=== PATIENT | male | born 1945 | race Caucasian/White ===

== ENCOUNTER → 2019-12-02 10:15 | Outpatient (BNVA) | payer MEDICARE, OTHER, SELFPAY | PROVIDERS: Family Provider Registered Nurse; PCP Registered Nurse; Visit Provider Registered Nurse | DX: F51.01 Primary insomnia (principal); H40.9 Unspecified glaucoma; N52.1 Erectile dysfunction due to diseases classified elsewhere; M62.830 Muscle spasm of back; I25.10 Atherosclerotic heart disease of native coronary artery without angina pectoris; R73.09 Other abnormal glucose | CPT/HCPCS: 80053; 80061; 83036; 85025 ==

== ENCOUNTER 2020-01-14 07:56 | Day surgery (SDC) | payer MEDICARE, OTHER, SELFPAY ==
[2020-01-14 08:10] VITALS: BP 135/76; PULSE 56; RESP 18; TEMP 36.1; O2SAT 97
[2020-01-14 08:11] VITALS: BMI 23.7
[2020-01-14] MEDS: sodium chloride 0.9% 1,000 ML 30 ML IV (08:23)
--- NOTE | 2020-01-14 08:55 | ANES.PREANE2 ---
Pre-Anesthetic Assessment Pre-Anesthetic Assessment: Height/Weight: Height 1.85 m Weight 81.647 kg Temp Pulse Resp BP Pulse Ox 97.0 F L 56 L 18 135/76 97 01/14/20 08:10 01/14/20 08:10 01/14/20 08:10 01/14/20 08:10 01/14/20 08:10 Preop Diagnosis: Screening Proposed Procedure: Operation Date: 01/14/20 09:00 Proposed Procedures p Colonoscopy/Possible biopsy Possible polypectomy/ 68073 Z12.11(Not Applicable) - Charles Krause MD Familial anesthetic complications: none Was Beta Nilsa taken within 24 hours: N/A Last intake: Intake Last Liquid Date 01/13/20 Last Liquid Time 23:00 Last Solid Date 01/12/20 Last Intake: 23:00 Social: Social History: No alcohol and No tobacco Exam: Pre-Anes Outpt Exam: alert, oriented x 3, clear to auscultation bilaterally and regular rate & rhythm Airway: Submandibular: WNL Cervical ROM: WNL MP: 2 Dentition: Full Pulmonary: Pulmonary: None reported CV/HEM: CV/HEM: CAD and SD Comments: PTCA placed 6 yrs. No SS since : : None reported Hepatic: Hepatic: None reported GI: GI: None reported Metabolic: Metabolic: None reported Musc/skel: Musc/skel: None reported Neuropsych: Neuropsych: None reported Anesthetic Plan: ASA status: 3 Anesthesia: Anesthesia Evaluation and MAC Risk of > 500 ml blood loss (7ml/kg in children): No Meds/Allergies Current Medications: Current Medications Generic Name Dose Route Start Last Admin Trade Name Freq PRN Reason Stop Dose Admin Sodium Chloride 1,000 mls @ 30 ml s/hr 01/14/20 08:15 01/14/20 08:23 Sodium Chloride 0.9% IV 30 mls/hr .Q24H SOHAIL Administration PFSH Anesthesia PFSH: Medical History (Updated 01/08/20 @ 16:52 by Marietta Moffett LPN) CAD (coronary artery disease) Erectile 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 Glaucoma Myocardial infarction MAGGIE (obstructive sleep apnea) Surgical History S/P cataract extraction S/P PTCA (percutaneous transluminal coronary angioplasty) Family History Mother Diabetes Denies family history of Anesthesia complication Bleeding disorder Social History Smoking and tobacco status: former smoker Alcohol intake: never Adopted: No Caregiver/support person: No Lives independently: No Household members: spouse Marital status: Current occupational status: retired History of recent travel: No Sexually active: Yes Current gender identity: Male Data Anesthesia Cardiac Studies: No Data to Display
--- NOTE | 2020-01-14 09:17 | W.PM.OPSUD ---
Surgery/Procedure H&P Update DATE OF PROCEDURE: January 14, 2020 DATE H&P PERFORMED: 01/08/20 H&P UPDATE INFORMATION: I have reviewed H&P completed within last 30 days, I have examined patient prior to procedure and No changes to prior documentation PREOP DIAGNOSIS: Screening PLANNED PROCEDURE: Operation Date: 01/14/20 09:00 Proposed Procedures p Colonoscopy/Possible biopsy Possible polypectomy/ 35151 Z12.11(Not Applicable) - Charles Krause MD
[2020-01-14 09:42] VITALS: BP 90/54; PULSE 61; RESP 16; TEMP 36.5; O2SAT 98
--- NOTE | 2020-01-14 09:55 | ANE.PACU2 ---
Inpatient post-anesthesia follow up: Airway intact: Yes Vital signs: Temperature 97.7 F Pulse Rate 61 Respiratory Rate 16 Blood Pressure 90/54 Pulse Oximetry 98 Oxygen Delivery Me thod Nasal Cannula Oxygen Flow Rate 3 Fraction of Inspir ed Oxygen Hydration adequate: Yes Nausea and vomiting: No Pain level: 1
== END 2020-01-14 10:17 | disposition home or self-care (01) ==
PROVIDERS: PCP Registered Nurse; Visit Provider Surgery
PROC: 0DJD8ZZ Inspection of Lower Intestinal Tract, Via Natural or Artificial Opening Endoscopic (ICD-10-PCS; CPT 45378; principal; 2020-01-14 09:00)
DX: Z12.11 Encounter for screening for malignant neoplasm of colon (principal); K57.30 Diverticulosis of large intestine without perforation or abscess without bleeding; I25.10 Atherosclerotic heart disease of native coronary artery without angina pectoris; I25.2 Old myocardial infarction; G47.33 Obstructive sleep apnea (adult) (pediatric); Z87.891 Personal history of nicotine dependence; Z79.82 Long term (current) use of aspirin
CPT/HCPCS: 12345; G0121; J2704; J7030

== ENCOUNTER 2020-02-10 11:29 | Day surgery (SDC) | payer MEDICARE, OTHER, SELFPAY ==
[2020-02-10] VITALS (9 sets, daily range): BP systolic 115–125; BP diastolic 67–76; PULSE 54–75; RESP 14–18; TEMP 36.3–36.6; O2SAT 95–100; BMI 23.1
--- NOTE | 2020-02-10 09:21 | P.HP_ITS ---
Same Day Surgery H&P Indication for Procedure/HPI DATE OF PROCEDURE: February 10, 2020 CHIEF COMPLAINT/INDICATIONFOR SURGICAL PROCEDURE: Bilateral inguinal hernia PREOP DIAGNOSIS: Screening PLANNED PROCEDRUE: Operation Date: 02/10/20 12:45 Proposed Procedures p Laparoscopic poss Open Inguinal Hernia Repair w/Mesh 42412 K40.20(Bilateral) - Charles Krause MD Medications/Allergies* Home Medications Medication Instructions Recorded Confirmed Type aspirin 81 mg tablet,delayed 81 mg PO DAILY 12/01/19 02/09/20 History release dorzolamide 2 % eye drops 1 drop OPHTHALMIC (EYE) BID 01/08/20 02/09/20 History Allergies/Adverse Reactions Allergy/AdvReac Type Severity Reaction Status Date / Time No Known Allergies Allergy Verified 01/08/20 11:33 Pertinent History/Comorbid Conditions* Medical History (Updated 01/08/20 @ 13:08 by Charles Krause MD) CAD (coronary artery disease) Erectile 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 Glaucoma Myocardial infarction MAGGIE (obstructive sleep apnea) Surgical History (Updated 01/08/20 @ 11:49 by Charles Krause MD) S/P cataract extraction S/P PTCA (percutaneous transluminal coronary angioplasty) Family History (Updated 01/08/20 @ 11:[address]) Diabetes Mother Denies family history of Anesthesia complication Bleeding disorder Social History Smoking and tobacco status: former smoker Alcohol intake: never Adopted: No Caregiver/support person: No Lives independently: No Household members: spouse Marital status: Current occupational status: retired History of recent travel: No Sexually active: Yes Current gender identity: Male Pertinent Exam Findings alert and regular rate & rhythm Recommendations Surgery/Procedure today Coding Level of Care Code Acute 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
[2020-02-10] MEDS: sodium chloride 0.9% 1,000 ML 30 ML IV (11:56)
--- NOTE | 2020-02-10 13:48 | ANES.PREANE2 ---
Pre-Anesthetic Assessment Pre-Anesthetic Assessment: Height/Weight: Height 1.85 m Weight 79.379 kg Temp Pulse Resp BP Pulse Ox 97.4 F L 64 18 125/76 98 02/10/20 11:40 02/10/20 11:40 02/10/20 11:40 02/10/20 11:40 02/10/20 11:40 Preop Diagnosis: bilateral inguinal hernia Proposed Procedure: Operation Date: 02/10/20 12:45 Proposed Procedures p Laparoscopic poss Open Inguinal Hernia Repair w/Mesh 80931 K40.20(Bilateral) - Charles Krause MD Familial anesthetic complications: None Was Beta Nilsa taken within 24 hours: N/A Last intake: Intake Last Liquid Date 02/09/20 Last Liquid Time 23:30 Last Solid Date 02/09/20 Last Solid Time 20:00 Social: Social History: No alcohol and No tobacco Exam: Pre-Anes Outpt Exam: alert, oriented x 3, clear to auscultation bilaterally and regular rate & rhythm Airway: Cervical ROM: WNL MP: 2 Dentition: Full Pulmonary: Pulmonary: None reported CV/HEM: CV/HEM: CAD (stents 5 years ago - only on aspirin now) and [place] Comments: METS > 4 works out 3x a week, can walk up stairs Anesthetic Plan: ASA status: 2 Anesthesia: General Risk of > 500 ml blood loss (7ml/kg in children): No Meds/Allergies Current Medications: Current Medications Generic Name Dose Route Start Last Admin Trade Name Freq PRN Reason Stop Dose Admin Sodium Chloride 1,000 mls @ 30 ml s/hr 02/10/20 10:15 02/10/20 11:56 Sodium Chloride 0.9% IV 02/11/20 10:14 30 mls/hr .Q24H SOHAIL Administration PFSH Anesthesia PFSH: Medical History (Updated 01/08/20 @ 16:52 by Marietta Moffett LPN) CAD (coronary artery disease) Erectile 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 Glaucoma Myocardial infarction MAGGIE (obstructive sleep apnea) Surgical History S/P cataract extraction S/P PTCA (percutaneous transluminal coronary angioplasty) Family History Mother Diabetes Denies family history of Anesthesia complication Bleeding disorder Social History Smoking and tobacco status: former smoker Alcohol intake: never Adopted: No Caregiver/support person: No Lives independently: No Household members: spouse Marital status: Current occupational status: retired History of recent travel: No Sexually active: Yes Current gender identity: Male Data Anesthesia Cardiac Studies: No Data to Display
--- NOTE | 2020-02-10 13:54 | ECG_ITS ---
[facility] Test Date: 2020-02-10 Pat Name: Celestine Natarajan Department: Room: Gender: Male Capacitor Tester: : 1945 Requested By: Toshia Marin Order Number: [id number] Macy MD: Karmen Lieberman M.D. Measurements Intervals [place] Rate: 60 P: 4 SD: 175 QRS: 3 QRSD: 83 T: 51 QT: 400 QTc: 402 Interpretive Statements SINUS RHYTHM No previous ECG available for comparison Electronically Signed On 02-10-2020 21:23:39 CDT by Karmen Lieberman M.D. [id number]
--- NOTE | 2020-02-10 15:42 | PM.OP ---
Operative Report Date of procedure: February 10, 2020 Pre-op Diagnosis: bilateral inguinal hernia Post-op Findings: Bilateral direct inguinal hernia Procedure Done: Laparoscopic total extraperitoneal repair of bilateral direct inguinal hernia with UltraPro 15 x 10 cm mesh x2 Surgeon: Charles Krause Anesthesia: General Estimated blood loss (mL): 10 Condition: stable Disposition: PACU Procedure: The patient was taken to the operating room. After IV antibiotic was administered, the abdomen was prepped and draped in a sterile manner. Using a 15 blade, a 1.0 cm transverse incision was made infraumbilically on the right side. Subcutaneous tissue was divided using electrocautery and the anterior rectus sheath divided using an 11 blade. The rectus muscle was retracted laterally and the extraperitoneal space identified. A balloon dissector was introduced and under direct visualization the retrorectus space was opened bilaterally. This was desufflated and removed. A 11 mm port was placed and 12 mm of pneumoperitoneum was created. A 10 mm 30? scope was introduced and the retrorectus space was opened using the camera up to the pubic symphysis and 5 mm ports were placed in the midline, one 2-fingerbreadths above the pubic symphysis and the other midway between these two ports under direct visualization. The dissection was carried laterally on the right side where the iliopubic tract was identified. There was no femoral or obturator hernia noted. There was a large incarcerated direct hernia which was reduced and the sac was everted and secured to the pubic tubercle using Securestraps. The inferior epigastric artery was identified and dissection was carried posterior to it and laterally, the space was opened up to the level of the umbilicus superior to the anterior superior iliac spine. I then proceeded to dissect out the spermatic cord and there was no indirect hernia noted. 15 x 10cm Ultrapro mesh was rolled and introduced through the 10 mm port and then rolled laterally and apposed well against the abdominal wall to cover the myopectineal orifice completely. The dissection was carried laterally on the left side where the iliopubic tract was identified. There was no femoral or obturator hernia noted. There was a large incarcerated direct hernia which was reduced and the sac was everted and secured to the pubic tubercle using Securestraps. The inferior epigastric artery was identified and dissection was carried posterior to it and laterally, the space was opened up to the level of the umbilicus superior to the anterior superior iliac spine. I then proceeded to dissect out the spermatic cord and there was no indirect hernia noted. 15 x 10cm Ultrapro mesh was rolled and introduced through the 10 mm port and then rolled laterally and apposed well against the abdominal wall to cover the myopectineal orifice completely. 10 Cc of 0.5% Marcaine was infiltrated into the preperitoneal space. The extraperitoneal space was desufflated under direct visualization to ensure no slippage of hernial sac under the mesh. All ports were removed, the anterior rectus fascia at the infraumbilical port closed using figure of eight 0 Vicryl sutures, subcutaneous tissue approximated using 3-0 Vicryl sutures and skin at all three port sites were closed using running subcuticular 4-0 Monocryl sutures and Dermabond. 10 mL of 0.5% Marcaine was infiltrated at the port sites. The patient was stable throughout the procedure.
== END 2020-02-10 17:04 | disposition home or self-care (01) ==
PROVIDERS: PCP Registered Nurse; Visit Provider Surgery
PROC: (CPT 49650; principal; 2020-02-10 12:45)
DX: K40.00 Bilateral inguinal hernia, with obstruction, without gangrene, not specified as recurrent (principal); I25.10 Atherosclerotic heart disease of native coronary artery without angina pectoris; N52.1 Erectile dysfunction due to diseases classified elsewhere; G47.33 Obstructive sleep apnea (adult) (pediatric); I25.2 Old myocardial infarction; H40.9 Unspecified glaucoma; Z95.5 Presence of coronary angioplasty implant and graft; Z79.82 Long term (current) use of aspirin; Z87.891 Personal history of nicotine dependence
CPT/HCPCS: 49650; 12345; 93005; J0131; J0690; J1100; J2405; J2704; J2710; J3010; J3490; J7030

== ENCOUNTER 2020-06-15 15:15 | Outpatient (CLI) | payer MEDICARE, OTHER, SELFPAY ==
--- NOTE | 2020-06-15 15:23 | USCV_ITS ---
Celestine SMITH Age: 75 Gender: M : 1945 Exam Date: 06/15/2020 15:31 Ordering Phys: Monet Irby BIOLOGICAL ENGINEER BIOLOGICAL ENGINEER Technologist: Archie Valero [place] [facility] [place]: PVD RIGHT LEFT Brachial 129.00 mmHg Brachial 140.00 mmHg Pressure (mmHg) Waveform Pressure (mmHg) Waveform 150.00 MAT MAKING MACHINE TENDER 152.00 148.00 DPA 148.00 1.07 Ankle/Brachial Index 1.09 106.00 Pre-Exercise Toe Pressure 67.00 0.76 Pre-Exercise Toe/Brachial Index 0.48 FINDINGS Normal resting ABIs bilaterally Normal resting TBI on the right side Diminished resting TBI on the left side CONCLUSIONS Features suggestive of moderate peripheral artery disease, possibly involving the distal vessels on the left side No significant arterial obstruction on the right side Dr Chemo García MD FAC (Electronically Signed) Final Date: 16 June 2020 18:48 S
== END 2020-06-15 15:16 | disposition home or self-care (01) ==
LOC: RAD 15:22
PROVIDERS: PCP Registered Nurse; Visit Provider Registered Nurse
DX: I73.9 Peripheral vascular disease, unspecified (principal)
CPT/HCPCS: 93922

== ENCOUNTER → 2020-12-27 08:37 | Outpatient (BNVA) | payer MEDICARE, OTHER, SELFPAY | PROVIDERS: PCP Registered Nurse; Visit Provider Registered Nurse | DX: E78.5 Hyperlipidemia, unspecified (principal); I73.9 Peripheral vascular disease, unspecified; N52.1 Erectile dysfunction due to diseases classified elsewhere; Z12.5 Encounter for screening for malignant neoplasm of prostate; L82.1 Other seborrheic keratosis; E78.2 Mixed hyperlipidemia | CPT/HCPCS: 80053; 80061; 85025; G0103 ==

== ENCOUNTER → 2021-05-15 10:07 | Outpatient (BNVA) | payer MEDICARE, OTHER, SELFPAY | PROVIDERS: PCP Registered Nurse; Visit Provider Registered Nurse | DX: R51.9 Headache, unspecified (principal); E50.9 Vitamin A deficiency, unspecified; E78.2 Mixed hyperlipidemia | CPT/HCPCS: 80053; 82306; 82607; 84443; 85025 ==

== ENCOUNTER 2021-05-16 16:16 | Outpatient (CLI) | payer MEDICARE, OTHER, SELFPAY ==
--- NOTE | 2021-05-16 16:30 | CT_ITS ---
WS: [id number] CT HEAD NONCONTRAST HISTORY: R51.9 - Headache, unspecified TECHNIQUE: Contiguous axial imaging performed through the brain in 2.5 mm imaging. Bone and soft tiss ue windows. All CT scans at [facility] use at least one of these dose optimization techniques: automated exposure control; mA and/or kV adjustment per patient size (includes targeted exams where dose is matched to clinical indication); or iterative reconstruction. DLP: 925.91 mGycm COMPARISON: None available. No acute intracranial hemorrhage, midline shift or mass effect. Mild atrophy is symmetric bilaterally. Slightly more atrophy involving the frontal and temporal lobes . Mild chronic microvascular ischemic type changes. No prior infarct. Ventricles: Normal size with no hydrocephalus. No inferior displacement of the cerebellar tonsils. Paranasal sinuses: As visualized are clear. Mastoid air cells: Well pneumatized. Calvarium and scalp: Skull is intact with no soft tissue edema or swelling. Scattered calcified plaque in the distal RIGHT vertebral artery. Additional calcified plaque through the cavernous sinuses, greater on the RIGHT. CT/CT head wo con* [id number] IMPRESSION: 1. No acute intracranial hemorrhage or edema. 2. Mild symmetric atrophy, predominantly frontotemporal lobe. 3. Mild chronic microvascular ischemic disease.
== END 2021-05-16 16:17 | disposition home or self-care (01) ==
LOC: RADWPI 16:18
PROVIDERS: PCP Registered Nurse; Visit Provider Registered Nurse
DX: R51.9 Headache, unspecified (principal); G31.9 Degenerative disease of nervous system, unspecified; I67.82 Cerebral ischemia
CPT/HCPCS: 70450

== ENCOUNTER → 2022-06-07 11:05 | Outpatient (BNVA) | payer MEDICARE, OTHER, SELFPAY | PROVIDERS: PCP Registered Nurse; Visit Provider Nurse Practitioner Family | DX: R30.0 Dysuria (principal); R39.9 Unspecified symptoms and signs involving the genitourinary system; R82.998 Other abnormal findings in urine | CPT/HCPCS: 81000; 87086 ==

== ENCOUNTER 2022-09-18 06:31 | Outpatient (CLI) | payer MEDICARE, OTHER, SELFPAY ==
--- NOTE | 2022-09-18 07:15 | US_ITS ---
WS: [id number] ABDOMINAL ULTRASOUND REASON FOR EXAM: R10.9 - Unspecified abdominal pain COMPARISON: None available. ORDER DATE: 09/18/2022 7:49 AM TECHNIQUE: Grayscale and Doppler ultrasound examination of the abdomen. FINDINGS: Pancreas: Unremarkable Abdominal aorta and IVC: There is a small distal abdominal aortic aneurysm measuring about 31 mm in d iameter Liver: Liver measures 17.1 cm in length. Echotexture of the liver is unremarkable without focal joseph e. The common bile duct measured 4 mm in diameter. No intrahepatic ductal dilatation. Gallbladder: Gallbladder wall thickness measures 0.2 mm. There is a faint round echogenic focus near the gallbladder neck estimated at 3 mm in diameter which could either represent pigmented stone or a small polyp Left kidney: Left kidney measures 9.5 cm x 4.0 cm x 4.3 cm. 12 mm cortical with Right kidney: Right kidney measures 9.4 cm x 4.7 cm x 5.8 cm. 11 mm cortical with Spleen: Spleen measures 8.0 cm x 3.7 cm. Normal echotexture US/US abdomen complete* [id number] IMPRESSION: Small pigment stone or possible gallbladder polyp at the gallbladder neck. Minimal distal abdominal aortic ectasia or aneurysm 31 mm in diameter
== END 2022-09-18 06:32 | disposition home or self-care (01) ==
LOC: RAD 06:34
PROVIDERS: PCP Registered Nurse; Visit Provider Registered Nurse
DX: R10.9 Unspecified abdominal pain (principal); I71.40 Abdominal aortic aneurysm, without rupture, unspecified
CPT/HCPCS: 76700

== ENCOUNTER → 2022-12-03 10:31 | Outpatient (BNVA) | payer MEDICARE, OTHER, SELFPAY | PROVIDERS: PCP Registered Nurse; Visit Provider Internal Medicine Cardiovascular Disease | DX: I25.10 Atherosclerotic heart disease of native coronary artery without angina pectoris (principal); R06.02 Shortness of breath; I73.9 Peripheral vascular disease, unspecified; G47.33 Obstructive sleep apnea (adult) (pediatric); K40.20 Bilateral inguinal hernia, without obstruction or gangrene, not specified as recurrent; E78.2 Mixed hyperlipidemia; Z87.891 Personal history of nicotine dependence; I49.8 Other specified cardiac arrhythmias | CPT/HCPCS: 93005; 99214 ==

== ENCOUNTER 2022-12-05 09:31 | Outpatient (CLI) | payer MEDICARE, OTHER, SELFPAY ==
--- NOTE | 2022-12-05 | ECG_ITS ---
[facility] Test Date: 2022-12-05 Pat Name: Celestine Natarajan Department: Room: Gender: Male Loader: : 1945 Requested By: Simona Newberry Order Number: [id number] Cavazos MD: Ivanna Saha M.D. Interpretive Statements NAME OF STUDY: EXERCISE SESTAMIBI STRESS TEST INDICATION: Exertional shortness of breath Baseline blood pressure of 121/79 mm Hg, heart rate 95 beats per minute and oxygen saturation 96%. EKG showed sinus rhythm with normal ST-Ts. The patient exercised for 5 minutes 10 seconds on a standard Pelon protocol. Patient attained a maximum heart rate of 153 beats per minute(107% of the maximum predicted heart rate) with a blood pressure at the peak exercise of 184/79 mm Hg. The EKG at the peak exercise revealed tachycardia with no ST-T wave changes. Patient did not have any chest pain or any significant arrhythmis with the exercise During the recovery phase, there were no new changes. Blood pressure at the end of the recovery phase was 169/76 mm Hg with a heart rate of 68 beats per minute. Isolated PVCs noted in recovery. CONCLUSION: 1. Normal EKG response to treadmill exercise 2. No exercise-induced chest pain or cardiac arrhythmia 3. Good exercise tolerance, attained a maximum of 7 METs. 4. Baseline normal blood pressure with normal response to exercise. 5. Perfusion scan will be documented separately. Electronically Signed On 12-12-2022 11:19:46 CDT by Ivanna Saha M.D. [id number]
[2022-12-05 09:42] VITALS: BMI 23.7
--- NOTE | 2022-12-05 09:53 | NMCV_ITS ---
NM dimitri perf SPECT r/s* [id number] Celestine Natarajan Age: 77 Gender: M : 1945 Exam Date: 12/05/2022 09:53 Ordering Phys: Simona Newberry DO Technologist: BRIAN Lemons Exam Location: [facility] Indications: SHORTNESS OF BREATH, CORONARY ANGIOPLASTY STATUS, ATHEROSCLEROTIC HEART DISEASE STRESS TEST Please see separate stress test report in [facility] for full findings IMAGE PROTOCOL Rest/Stress 1 Exercise Day Radiopharmaceutical Dose (mCi) Administration Site Administered by Rest: Tc-99m 10.9 IV BRIAN Flores Sestamibi Stress:Tc-99m 32.3 IV BRIAN Flores Sestamibi Rest: 05-Dec-2022 60 Discovery 630 Stress: 05-Dec-2022 30 Discovery 630 Radiopharmaceutical was injected at 97 % maximum heart rate. Images obtained in supine and prone position. SPECT RESULTS Technical Quality: Excellent Raw Data Analysis: Normal Image Corrections: No attenuation or motion correction applied Summed Stress Score: 5 Summed Rest Score: 7 Summed Difference Score: 0 PERFUSION FINDINGS There is a medium in size fixed perfusion defect noted in inferior and inferolateral terrell. This is consistent with medium sized area of prior infarct seen in RCA and left circumflex artery territories. FUNCTIONAL RESULTS (calculated via Gated SPECT) Stress Image LV EF (%): 67 Stress EDV (mL):99 TID: 0.88 Stress ESV (mL):33 FUNCTIONAL FINDINGS: There is normal left ventricular systolic function. IMPRESSIONS 1. Abnormal myocardial perfusion imaging with prior infarcts noted in the RCA and Left circumflex artery territory. No evidence of ischemia 2. LV systolic function is normal Rodolfo Ward MD (Electronically Signed) Final Date: 08 December 2022 10:41 S
[2022-12-05 12:04] VITALS: BP 169/46; PULSE 68
== END 2022-12-05 09:32 | disposition home or self-care (01) ==
LOC: CDL 09:32
PROVIDERS: PCP Registered Nurse; Visit Provider Family Medicine
DX: R06.02 Shortness of breath (principal); Z98.61 Coronary angioplasty status; I25.10 Atherosclerotic heart disease of native coronary artery without angina pectoris
CPT/HCPCS: 36415; 78452; 93017; A9500

== ENCOUNTER → 2023-12-02 10:54 | Outpatient (BNVA) | payer MEDICARE, OTHER, SELFPAY | PROVIDERS: PCP Registered Nurse; Visit Provider Internal Medicine Cardiovascular Disease | DX: I25.10 Atherosclerotic heart disease of native coronary artery without angina pectoris (principal); Z98.61 Coronary angioplasty status; E78.2 Mixed hyperlipidemia; G47.33 Obstructive sleep apnea (adult) (pediatric); I25.2 Old myocardial infarction; Z87.891 Personal history of nicotine dependence; Z79.82 Long term (current) use of aspirin | CPT/HCPCS: 99213 ==

== ENCOUNTER → 2024-01-30 10:37 | Outpatient (BNVA) | payer MEDICARE, OTHER, SELFPAY | PROVIDERS: PCP Registered Nurse; Visit Provider Registered Nurse | DX: R30.0 Dysuria (principal) | CPT/HCPCS: 81000 ==

== ENCOUNTER → 2024-02-05 16:12 | Outpatient (BNVA) | payer MEDICARE, OTHER, SELFPAY | PROVIDERS: PCP Registered Nurse; Visit Provider Registered Nurse | DX: N39.0 Urinary tract infection, site not specified (principal); R82.998 Other abnormal findings in urine | CPT/HCPCS: 81000; 87086 ==

== ENCOUNTER → 2024-02-12 09:34 | Outpatient (BNVA) | payer MEDICARE, OTHER, SELFPAY | PROVIDERS: PCP Registered Nurse; Visit Provider Registered Nurse | DX: R10.9 Unspecified abdominal pain (principal) | CPT/HCPCS: 81000 ==

== ENCOUNTER 2024-02-18 07:45 | Outpatient (CLI) | payer MEDICARE, OTHER, SELFPAY ==
--- NOTE | 2024-02-18 08:00 | CT_ITS ---
WS: [id number] CT ABDOMEN AND PELVIS NONCONTRAST HISTORY: N20.0 - Calculus of kidney TECHNIQUE: Imaging performed through the abdomen and pelvis. Coronal and sagittal reformats are submi tted. All CT scans at [facility] use at least one of these dose optimization techniques: auto mated exposure control; mA and/or kV adjustment per patient size (includes targeted exams where dose is matched to clinical indication); or iterative reconstruction. DLP: 423.80 mGy.cm COMPARISON: 06/27/2016 Lower thorax: Emphysematous changes at the lung bases. Heart is normal size. Small hiatal hernia. Liver: Normal size liver. No mass or bile duct dilatation. Gallbladder: Gallbladder is contracted. No adjacent inflammation. Pancreas: Normal size and attenuation. Normal pancreatic duct. No pancreatitis or mass. Spleen: Normal. Adrenal glands: Normal. No mass. Right kidney: Mild perinephric stranding. No obstruction. Left kidney: Mild perinephric stranding. Slightly greater stranding around the LEFT kidney. No calcif ication or mass identified small caliber LEFT ureter. No ureteral calcification. Aorta: Mildly aneurysmal and ectatic abdominal aorta. Mild aneurysmal dilatation up to 3.1 cm has pro gressed since the prior study. Maximum diameter at that time was 2.5 cm. There is mild scattered calc ified plaque. Calcification extends into the common iliac arteries. No free fluid, intraperitoneal air or significant lymphadenopathy. GI tract: Stomach is distended. No small bowel obstruction. Moderate diffuse constipation. No appendi citis. Mild diverticular burden in the sigmoid. Abdominal wall: Small umbilical hernia contains fat only. Pelvis: Underdistended bladder. There is also artifact from the patient's LEFT hip prosthesis to the bladder making the wall difficult to visualize. No free fluid or adenopathy. Fat-containing LEFT ingu inal canal. Osseous structures: Lumbar spondylosis. Prior LEFT hip arthroplasty. CT/CT kidney stone [id number] IMPRESSION: 1. No renal or ureteral calcifications or obstruction. 2. Mild sigmoid diverticular burden. No evidence for acute diverticulitis. 3. Gallbladder is contracted without adjacent inflammation. Consider contracti on after fatty meal or chronic cholecystitis. 4. Small infrarenal abdominal aortic aneurysm at 3.1 cm. Prior measurement 2.5 cm. 5. Mild diffuse constipation.
== END 2024-02-18 07:46 | disposition home or self-care (01) ==
LOC: RAD 07:46
PROVIDERS: PCP Registered Nurse; Visit Provider Registered Nurse
DX: N20.0 Calculus of kidney (principal); J43.9 Emphysema, unspecified; I77.811 Abdominal aortic ectasia; K59.00 Constipation, unspecified; K57.30 Diverticulosis of large intestine without perforation or abscess without bleeding; M47.816 Spondylosis without myelopathy or radiculopathy, lumbar region; Z96.642 Presence of left artificial hip joint
CPT/HCPCS: 74176; 81000

== ENCOUNTER → 2024-03-05 11:36 | Outpatient (BNVA) | payer MEDICARE, OTHER, SELFPAY | PROVIDERS: PCP Registered Nurse; Visit Provider Registered Nurse | DX: Z13.6 Encounter for screening for cardiovascular disorders (principal); E55.9 Vitamin D deficiency, unspecified | CPT/HCPCS: 80053; 80061; 82306; 82607; 85025 ==

== ENCOUNTER → 2024-03-06 11:47 | Outpatient (BNVA) | payer MEDICARE, OTHER, SELFPAY | PROVIDERS: PCP Registered Nurse; Visit Provider Registered Nurse | DX: R73.9 Hyperglycemia, unspecified (principal) | CPT/HCPCS: 83036 ==

== ENCOUNTER 2024-07-01 06:00 | Outpatient (RCR) | payer MEDICARE, OTHER, SELFPAY | END 2024-07-31 23:59 | disposition home or self-care (01) | LOC: WPT 06:00 | PROVIDERS: PCP Registered Nurse; Visit Provider Registered Nurse | DX: M77.8 Other enthesopathies, not elsewhere classified (principal) | CPT/HCPCS: 97110; 97112; 97530 ==

== ENCOUNTER → 2024-07-23 08:34 | Outpatient (BNVA) | payer MEDICARE, OTHER, SELFPAY | PROVIDERS: PCP Registered Nurse; Visit Provider Registered Nurse | DX: R39.15 Urgency of urination (principal); R39.9 Unspecified symptoms and signs involving the genitourinary system; Z13.1 Encounter for screening for diabetes mellitus; J01.40 Acute pansinusitis, unspecified | CPT/HCPCS: 80048; 81000; 83036; 84153; 85025; 87086 ==

== ENCOUNTER 2024-08-01 06:00 | Outpatient (RCR) | payer MEDICARE, OTHER, SELFPAY | END 2024-08-28 23:59 | disposition home or self-care (01) | LOC: WPT 06:00 | PROVIDERS: PCP Registered Nurse; Visit Provider Registered Nurse | DX: M77.8 Other enthesopathies, not elsewhere classified (principal) | CPT/HCPCS: 97110; 97112; 97530 ==

== ENCOUNTER → 2024-12-25 08:50 | Outpatient (BNVA) | payer MEDICARE, OTHER, SELFPAY | PROVIDERS: PCP Registered Nurse; Visit Provider Internal Medicine | DX: I25.10 Atherosclerotic heart disease of native coronary artery without angina pectoris (principal); E78.2 Mixed hyperlipidemia; G47.33 Obstructive sleep apnea (adult) (pediatric); Z79.82 Long term (current) use of aspirin; Z98.61 Coronary angioplasty status; Z87.891 Personal history of nicotine dependence; I25.2 Old myocardial infarction | CPT/HCPCS: 99214 ==

== ENCOUNTER → 2025-04-22 09:49 | Outpatient (BNVA) | payer MEDICARE, OTHER, SELFPAY | PROVIDERS: PCP Registered Nurse; Visit Provider Nurse Practitioner Family | DX: L57.8 Other skin changes due to chronic exposure to nonionizing radiation (principal); L82.1 Other seborrheic keratosis; L81.4 Other melanin hyperpigmentation; D18.01 Hemangioma of skin and subcutaneous tissue; L82.0 Inflamed seborrheic keratosis | CPT/HCPCS: 17000; 17110; 99203 ==